=== PATIENT | male | born 1955 | race Two or more races ===

== ENCOUNTER 2024-03-29 15:37 | Outpatient (CLI) | payer OTHER | END 2024-03-29 15:49 | disposition home or self-care (01) | LOC: TOM 15:37 | PROVIDERS: ATTEND Orthopaedic Surgery | DX: M79.672 Pain in left foot (principal) ==

== ENCOUNTER 2024-04-02 06:31 | Outpatient (CLI) | payer OTHER ==
[2024-04-02 07:26] LABS: PH,URINE 6.5 (5.0-8.0); URINE APPEARANCE Clear; URINE BILIRRUBIN Negative (NEGATIVE); URINE BLOOD Negative; URINE COLOR Yellow; URINE KETONE Trace (NEGATIVE); URINE LEUKOCYTE Negative; URINE NITRATE Negative; URINE PROTEIN Negative (NEGATIVE)
[2024-04-02 07:29] LABS: URINE BACTERIA 12.2 uL (0.0-1933); URINE EPITHELIAL CELLS 2.6 uL (0.0-38.8); URINE RBC 8.1 uL (0.0-20.8); URINE WBC 4.5 uL (0.0-23.2)
[2024-04-02 07:36] LABS: HEMATOCRIT 44.2 % (39.0-48.0); HEMOGLOBIN 15.1 g/dL (13-16.00); MEAN CELL VOLUME 92.7 fL (80.0-100.00); MEAN CORPUSCULAR HEMOGLOBIN 31.6 pg (27.00-32.0); MEAN CORPUSCULAR HGB CONC 34.1 g/dl (32.0-36.0); PLATELET COUNT 262 K/uL (150-450); RED BLOOD COUNT 4.77 M/uL (4.00-6.00); RED CELL DISTRIBUTION WIDTH 14.2 % (11.5-14.5)
[2024-04-02 07:36] LABS: URINE CAST 0.44 uL (0.0-1.40); URINE GLUCOSE >=1000 MG/DL (NEGATIVE)
[2024-04-02 07:55] LABS: INR 0.97; PARTIAL THROMBOPLASTIN TIME 27.9 SECONDS (22.0-34.0); PROTHROMBIN TIME 10.6 SECONDS (9.0-11.5)
[2024-04-02 08:19] LABS: COL EPI 72 SECONDS (82-175)
[2024-04-02 08:47] LABS: ALBUMIN 3.8 gm/dL (3.4-5.0); BILIRUBIN TOTAL 0.84 mg/dL (0.3-1.2); CALCIUM 9.4 mg/dL (8.5-10.1); CREATININE SERUM 1.27 mg/dL (0.70-1.30); GFR 56.56; GLOBULINA 3.3 G/DL (2.4-3.5); MAGNESIUM 2.4 mg/dL (1.8-2.4); POTASSIUM 4.6 mEq/L (3.5-5.1); TOTAL PROTEIN 7.1 gm/dL (6.4-8.2)
== END 2024-04-02 06:33 | disposition home or self-care (01) ==
LOC: RAD 06:31
PROVIDERS: ATTEND Orthopaedic Surgery
DX: Z76.89 Persons encountering health services in other specified circumstances (principal); I10 Essential (primary) hypertension

== ENCOUNTER 2024-04-12 10:15 | Outpatient (CLI) | payer OTHER | END 2024-04-12 10:23 | disposition home or self-care (01) | LOC: RAD 10:15 | PROVIDERS: ATTEND Orthopaedic Surgery | DX: S92.012A Displaced fracture of body of left calcaneus, initial encounter for closed fracture (principal); X58.XXXA Exposure to other specified factors, initial encounter; Y93.9 Activity, unspecified; Y92.9 Unspecified place or not applicable; Y99.9 Unspecified external cause status ==

== ENCOUNTER → 2024-04-12 | Day surgery (SDC) | payer OTHER ==
[~2024-04-12] MED LIST: COZAAR25 MG PO; JANUMET 50-5001 EACH PO
== END | disposition home or self-care (01) ==
LOC: CIR.AMB 11:05
PROVIDERS: ATTEND Orthopaedic Surgery
DX: S92.012D Displaced fracture of body of left calcaneus, subsequent encounter for fracture with routine healing (principal); Z53.9 Procedure and treatment not carried out, unspecified reason